=== PATIENT | female | born 1985 | race Caucasian/White ===

== ENCOUNTER 2021-07-18 10:51 | Outpatient (CLI) | payer BC, SELFPAY ==
--- NOTE | ~2021-07-18 | XR_ITS ---
XR knee LT 3V 07/18/2021 11:13 Indication: Left knee pain Procedure: 3 views left knee Comparison: No prior studies for comparison. Findings: There is mild osteoarthritis of the left knee. No fracture, subluxation or dislocation. No significant joint effusion. No foreign bodies. Impression: 1: Mild osteoarthritis of the left knee. Reviewed, dictated and finalized at location A. Impression: 1: Mild osteoarthritis of the left knee.
== END 2021-07-18 10:52 | disposition home or self-care (01) ==
LOC: CHSIMG 10:57
PROVIDERS: PCP Family Medicine; Visit Provider Registered Nurse
DX: M25.562 Pain in left knee (principal)
CPT/HCPCS: 73562

== ENCOUNTER 2021-07-27 09:52 | Outpatient (RCR) | payer BC, SELFPAY ==
--- NOTE | 2021-07-27 10:44 | PTOPEVAL ---
Thank you for referring Salina Catalan to [facility].? The patient is scheduled to be seen for therapy? ____x/week for ___ weeks. Please review, sign, date and return this plan of care BERNARDINO. I agree with and certify that the following plan of care is medically necessary. Referring Physician Date Admitting Provider: Attending Provider: Bernard Ambriz, MD Referring Provider: *PT Outpatient Evaluation Start: 07/27/21 09:59 Freq: Status: Active Protocol: Document 07/27/21 10:05 [facility] (Rec: 07/27/21 10:44 [facility] [id number]) Therapy Assessment Status Assessment Status Assessment Status Evaluation Evaluation Information Problem Diagnosis L knee OA Onset 07/19/21 Additional Evaluation Detail LEFS = 18% functionally declined Subjective Information patient is joined by her Query Text:As Reported By Patient/ mother. they report patient Family has fallen a bunch. they report she has been complaining of pain in the R knee more lately which they know means she has had pain for a while. patient typically goes up and down steps a lot at home, but reports as of recently she has avoided this due to pain. they have had xrays of the knee and it shows arthritis. they report she has had limited her walking around the house due to pain. Prior Level of Function Comments Additional Prior Level of Function mother reports she has noticed Comments more increased pain for the past few weeks. they report she was independent and mobile prior to the last few weeks without any pain. Pain Assessment Timing of Pain Assessment Timing of Pain Assessment Assessment Pain Scale Pain Scale Used Numeric (1 - 10) Self Report Pain Assessment Left Knee(s) Reported Pain Level 4 Pain Score Pain Score 4: Self Report Interventions Used Interventions Used By Clinicians Medication,Rest Lower Extremity Range of Motion General Lower Extremity Range of Motion Gross Lower Extremity Range of Motion 0-105 arom R knee mobility Comments 0-103 arom L knee mobility Lower Extremity Muscle Strength Testing General Lower Extremity Strength Gross Lower Extremity Strength 4/5 bilateral hip flex 4+/5 bilateral knee ext
--- NOTE | 2021-11-28 10:22 | PCPTNOTE ---
kamille has not been to therapy since July. as of this date, she will be dc'd from skilled PT services due to lack of return to finish POC. [place]
== END 2021-08-02 23:59 | disposition home or self-care (01) ==
LOC: CHSPT 09:52
PROVIDERS: PCP Family Medicine; Visit Provider Family Medicine
DX: M17.12 Unilateral primary osteoarthritis, left knee (principal)
CPT/HCPCS: 97014; 97110; 97162; G0283

== ENCOUNTER 2023-07-30 09:02 | Outpatient (CLI) | payer OTHER, SELFPAY ==
[2023-07-30 09:55] LABS: Alanine Aminotransferase 23 U/L (14-59); Alkaline Phosphatase 122 U/L (46-116); Anion Gap 9 mmol/L (4-12); Aspartate Amino Transferase 12 U/L (15-37); Bilirubin,Total 0.5 mg/dL (0.00-1.00); Blood Urea Nitrogen 10 mg/dL (7-18); Calcium 8.5 mg/dL (8.5-10.1); Carbon Dioxide 28 mmol/L (21-32); Chloride 105 mmol/L (98-108); Cholesterol 149 mg/dL (0-200); Estimated Glomerular Filt Rate > 60; Glucose 116 mg/dL (70-99); HDL Direct 43 mg/dL (40-60); LDL Cholesterol Calculated 92 mg/dL (<130); Osmolality Calculated 294 mOsm/kg (285-295); Potassium 4.2 mmol/L (3.5-5.1); Sodium 142 mmol/L (136-145); Thyroid Stimulating Hormone 0.82 uIU/mL (0.36-3.74); Total Protein 6.9 g/dL (6.4-8.2); Triglycerides 71 mg/dL (0-150)
== END 2023-07-30 09:03 | disposition home or self-care (01) ==
LOC: CHSLAB 09:06
PROVIDERS: PCP Family Medicine; Visit Provider Family Medicine
DX: E66.9 Obesity, unspecified (principal); R73.01 Impaired fasting glucose
CPT/HCPCS: 36415; 80053; 80061; 83036; 84443